=== PATIENT | female | born 1985 | race African-American/Black ===

== ENCOUNTER 2017-01-12 13:49 | Emergency (ER) | payer OTHER ==
[~2017-01-12] VITALS: Ht 154.9 cm; Wt 43.6 kg
[~2017-01-12 13:49] MED LIST: DOCUSATE SODIU100 MG PO; ENDOCET 5-3251 EACH PO; FERROUS SULFAT325 MG PO; IBUPROFEN800 MG PO; PROAIR HFA8.5 GM IH; SYMBICORT60 INHALA1 IH; VITAMIN C500 M1 PO
[2017-01-12] MEDS ORDERED: PREDNISONE20 MG PO (15:56)
[2017-01-12 16:19] VITALS: BP 107/89
== END 2017-01-12 16:19 | disposition home or self-care (01) ==
LOC: EME 13:49
DX: J45.901 Unspecified asthma with (acute) exacerbation (principal); F17.200 Nicotine dependence, unspecified, uncomplicated
CPT/HCPCS: 71020; 93005; 94640; 99281; 99285; J2930; J7030; J7512